=== PATIENT | male | born 1955 | race Caucasian/White ===

== ENCOUNTER → 2017-02-21 | Outpatient (CLI) | payer BC, OTHER ==
[~2017-02-21] VITALS: Ht 172.7 cm; Wt 84.1 kg
[~2017-02-21] MED LIST: AMARYL2 MG PO; ARAVA20 MG PO; ASPIR 8181 MG PO; ATORVASTATIN CA80 MG PO; HYDROCODONE-APA1 TA1 PO; LANTUS SOL100 UNIT/1 SQ; LISINOPRIL10 MG PO; LOPRESSOR25 PO; NITROGLYCERIN0.4 MG SUBLING; PLAVIX 75 MG TA75 M1 PO; PREDNISONE 10 M10 MG PO; PROTONIX40 M1 PO
--- NOTE | ~2017-02-21 | HPC ---
[facility] [address] [place] [address] PAIN MANAGEMENT CONSULTATION Name: DAWIT MATHEWS Room #: REG VICENTETere Browne#: [id number] Admission: 02/21/17 Attend Phys: Diomedes Sarmiento DO Discharge: Date of : 57 Report #: [id number] THIS REPORT FOR: //name// CC: Renaldo Sarmiento DATE OF SERVICE: 02/22/2017 The patient is a 60-year-old gentleman seen in consultation at the request of Dr. Garza. The patient notes he has pain in low back, left posterior aspect of the leg to the foot. Notes pain has been chronic since 2014, seems to have gotten worse beginning of this year without antecedent trauma and overuse. The patient notes pain is sharp, constant, radiating rates it to 4 out of 5 on a 0-10 visual analog scale with walking relatively comfortable when sitting. Lifting exacerbates pain as well. Again, pain is in the posterolateral aspect of the left leg and foot moving toward the toes. The patient has tried prednisone with transient relief, currently using some hydrocodone for pain. Incidentally notes he has had significant trauma to the left hip requiring ORIF of the hip and pelvis in 1989. REVIEW OF SYSTEMS: Complete review of systems attached to chart, was gone over with the patient, generally healthy other than the prior trauma is noted. History of insulin dependent diabetes, relatively stable. He has had coronary artery disease in the past has nitroglycerin, which he takes p.r.n. (has taken it quite rarely). Does use glimepiride as well as insulin. PHYSICAL EXAMINATION: Shows 172 cm, 84 kilogram gentleman, BMI is 20.2 kilograms per meter squared. Blood pressure is elevated today 160/107, pulse 85 and respirations 18. HEENT: Cranial nerves 2-12 are grossly intact. Pupils equal, reactive to light and accommodation. Extraocular muscles are intact. NEUROLOGIC: Alert and oriented to person, place and time, judged to be a reasonable historian. Thyroid is moderately enlarged, no nodules are noted. Upper extremity strength is generally preserved. HEART: Regular rhythmical without murmur. LUNGS: Clear to auscultation. ABDOMEN: Somewhat endomorphic build. EXTREMITIES: Rises from chair using armrest. Markedly antalgic gait. Lumbar flexion is good to 90 degrees, but significantly exacerbates low back and left leg pain. Left dorsiflexion strength is dramatically limited at 0-1/5. He notes this has been problematic since the fairly extensive surgery in that left hip in 1989. Left lower extremity extension is about 2-3/5, hip flexion is [address] [address] PAIN MANAGEMENT CONSULTATION Name: DAWIT MATHEWS Room #: REG CLTere Bhandari.#: [id number] Admission: 02/21/17 Attend Phys: Diomedes Sarmiento DO Discharge: Date of : 57 Report #: [id number] 2-3/5 right leg is much stronger 4-5/5 for all muscle groups tested. Grossly positive straight leg raise on the left. DIAGNOSTIC STUDIES: There are no recent diagnostic studies available for evaluation at this time. ASSESSMENT: Symptomatic lumbar radiculopathy in a patient with prior history of significant trauma to the left hip open reduction internal fixation in 1989, insulin-dependent diabetes. RECOMMENDATIONS: Discussion with the patient today about therapeutic options. We ultimately like to proceed with epidural injection under fluoroscopy today, we will use 60 mg triamcinolone in consideration of the diabetes. Recommend discontinue oral prednisone. Follow up in 30 days for reevaluation as per [facility] insurance regulations. ASSESSMENT: Symptomatic lumbar radiculopathy. PROCEDURE NOTE: Lumbar epidural injection under fluoroscopy. After both written and informed consent to include risk of spinal cord damage, increased pain, weakness and dural puncture, the patient was taken to the fluoroscopy suite, placed in the prone position. After sterile prep and drape, a skin wheal with lidocaine was raised. A 22-gauge epidural Tuohy needle was inserted in the midline at L5-S1 with good loss to resistance. Negative aspiration for cerebrospinal fluid or blood was noted. Then 1 mL of Omnipaque under biplanar fluoroscopy showed good spread within the epidural space. This was followed with 60 mg of triamcinolone plus 1 mL of 1.5% preservative-free Xylocaine, 0.5 mL Xylocaine was then injected to flush the needle; it was removed. The patient was monitored for an appropriate period of time and discharged in good and stable condition. <ELECTRONICALLY SIGNED> By: Diomedes Sarmiento DO 02/24/17 1130 1049 [id number] Diomedes Sarmiento DO /nt
[2017-02-21 14:07] VITALS: BP 160/107
== END | disposition home or self-care (01) ==
LOC: PAIN 07:28
DX: M54.16 Radiculopathy, lumbar region (principal)

== ENCOUNTER → 2017-03-27 | Outpatient (CLI) | payer BC, OTHER ==
[~2017-03-27] VITALS: Ht 172.7 cm; Wt 82.6 kg
--- NOTE | ~2017-03-27 | HPC ---
[facility] [address] [place] [address] PAIN MANAGEMENT CONSULTATION Name: DAWIT MATHEWS Room #: REG CL Elisabet.#: [id number] Admission: 03/27/17 Attend Phys: Diomedes Sarmiento DO Discharge: Date of : 57 Report #: [id number] THIS REPORT FOR: //name// CC: Renaldo Sarmiento DATE OF SERVICE: 03/27/2017 The patient is a pleasant 62-year-old gentleman last seen in the pain clinic 02/21/2017. We proceeded with an epidural injection at that time. The patient had acute lumbar radiculopathy with chronic left hip pain status post trauma requiring extensive ORIF of the hip and pelvis. The patient notes the injection afforded very good relief greater than 80%, though when he was bending to left, a fairly heavy 100-pound work related object, he developed recurrence of pain in the low back, left hip and leg. PHYSICAL EXAMINATION: Today again shows pleasant 62-year-old gentleman. Subjective pain score of 4 at present up to an 8 with movement in the low back, left hip, lateral leg. BMI is 27.7 kilograms per meter squared. Blood pressure is modestly elevated at 157/90, pulse 74, respirations are 20. Left leg does show chronic weakness about 3/5 to all muscle groups tested. Right leg is a little bit stronger. Again, this has been weaker since the 1989 trauma; however, he does have a grossly positive straight leg raise on the left, which reproduces L5 radicular pain pattern. ASSESSMENT: Symptomatic lumbar radiculopathy in an insulin-dependent gentleman. RECOMMENDATION: Lumbar epidural injection under fluoroscopy today at L5-S1. We will use 60 mg steroid in consideration of his diabetes. Follow up in 30 days for reevaluation. Cancel if doing well. PROCEDURE NOTE: Lumbar epidural injection under fluoroscopy. PROCEDURE NOTE: After both written and informed consent to include risk of spinal cord damage, increased pain, weakness and dural puncture, the patient was taken to the fluoroscopy suite, placed in the prone position. After sterile prep and drape, a skin wheal with lidocaine was raised. A 22-gauge epidural Tuohy needle was inserted in the midline at L5-S1 with good loss to resistance. Negative aspiration for cerebrospinal fluid or blood was noted. Then 1 mL of Omnipaque under biplanar fluoroscopy showed good spread within the epidural space. This was followed with 60 mg of triamcinolone plus 1 mL of 1.5% preservative-free Xylocaine, 0.5 mL Xylocaine [place] [address] PAIN MANAGEMENT CONSULTATION Name: DAWIT MATHEWS Room #: REG CL Pavan#: [id number] Admission: 03/27/17 Attend Phys: Diomedes Sarmiento DO Discharge: Date of : 57 Report #: [id number] needle; it was removed. The patient was monitored for an appropriate period of time and discharged in good and stable condition. <ELECTRONICALLY SIGNED> By: Diomedes Sarmiento DO 03/28/17 0925 1220 2019 Diomedes Sarmiento DO /nt
[2017-03-27 10:30] VITALS: BP 157/90
== END | disposition home or self-care (01) ==
LOC: PAIN 03-07 08:48
DX: M54.16 Radiculopathy, lumbar region (principal); M25.552 Pain in left hip; G89.29 Other chronic pain; E11.9 Type 2 diabetes mellitus without complications; Z79.4 Long term (current) use of insulin; Z98.890 Other specified postprocedural states

== ENCOUNTER → 2017-07-28 | Outpatient (CLI) | payer BC, OTHER ==
[2017-07-24 08:03] VITALS: BP 120/68
[~2017-07-28] VITALS: Ht 172.7 cm; Wt 81.6 kg
[~2017-07-28] MED LIST changes: +ELIQUIS5 MG PO
--- NOTE | ~2017-07-28 | HPC ---
[facility] [place] [address] PAIN MANAGEMENT CONSULTATION Name: DAWIT MATHEWS Room #: REG CLeTre Browne#: [id number] Admission: 07/28/17 Attend Phys: Diomedes Sarmiento DO Discharge: Date of : 57 Report #: [id number] THIS REPORT FOR: //name// CC: Renaldo Sarmiento The patient is a 62-year-old gentleman, prior seen back in March for lumbar radicular symptoms. He was given an L5-S1 epidural injection at that time with significant improvement of baseline pain. He actually presented to the pain clinic last for injection. Unfortunately, he was on Eliquis at that time. I did do a quick exam. Symptoms are compatible with left L5 radicular pain pattern. The patient complained about having to pay 2 co-pays because he would be seen on Friday and had to be seen again today. I simply allowed the patient to leave the clinic without dictating and without charging him for an office visit. He does return to the pain clinic today again. Symptoms are continuing with left L5 radicular pain pattern. Pain is in the low back, exacerbated with standing, walking and bending. He has some new pain in the right low back. States he was chasing his dog, crosses neighbor's yard while he was driving his tractor, apparently ran over some rough terrain and injured his right low back. He also notes some chronic pain in his left upper arm. He had not mentioned this before. He states it has been present for several months. Notes pain seems to be exacerbated when he is driving his bulldozer or driving his vehicle, he tends to hold the steering with his left arm. Bulldozer requires "joystick" manipulation with both left and right hands. PHYSICAL EXAMINATION: Shows a 62-year-old gentleman, BMI is 27.4 kg/m2. Cervical range of motion is full. Lhermitte's is negative. Does have pain in the left upper arm. Strength is fairly symmetric. Has a positive radial Tinel. Deep tendon reflexes are preserved for the upper extremity. Seems to have left upper arm pain, which sounds neurogenic, but again with negative limits and symmetric. Deep tendon reflexes are generally symmetric strength. I am somewhat stymied to determine the cause, if symptoms continue, we may need an EMG of the upper extremity. Otherwise, rises from chair using armrest. Diffuse tenderness across the low back, pain in left low back, buttock, and leg, posterior aspect. Positive straight leg raise on the left. Some diffuse tenderness in the right low back. No discrete trigger points noted. ASSESSMENT: 1. Symptomatic lumbar radiculopathy in a gentleman who had been off Eliquis for 3 days with a history of bbx-cdeqtty-zpzetgici diabetes. Recommendation: Epidural injection under fluoroscopy today at L5-S1, we will use 60 mg of triamcinolone and resume Eliquis tonight. 2. Component of carpal tunnel syndrome on the left (radial), left upper arm pain and component of cervical radiculopathy (?). Recommendation: Conservative therapy for another 3 weeks. If symptoms continue, we will request EMG of the [address] [address] PAIN MANAGEMENT CONSULTATION Name: DAWIT MATHEWS Room #: REG UVALDO Browne#: [id number] Admission: 07/28/17 Attend Phys: Diomedes Sarmiento DO Discharge: Date of : 57 Report #: [id number] left upper extremity. PROCEDURE: Lumbar epidural injection under fluoroscopy. PROCEDURE NOTE: After both written and informed consent to include risk of spinal cord damage, increased pain, weakness and dural puncture, the patient was taken to the fluoroscopy suite, placed in the prone position. After sterile prep and drape, a skin wheal with lidocaine was raised. A 22-gauge epidural Tuohy needle was inserted in the midline at level of L5-S1 with good loss to resistance. Negative aspiration for cerebrospinal fluid or blood was noted. Then 1 mL of Omnipaque under biplanar fluoroscopy showed good spread within the epidural space. This was followed with 60 mg of triamcinolone plus 1 mL of 1.5% preservative-free Xylocaine, 0.5 mL Xylocaine was then injected to flush the needle; it was removed. The patient was monitored for an appropriate period of time and discharged in good and stable condition. By: 1230 193 Diomedes Sarmiento DO /nt
[2017-07-28 10:09] VITALS: BP 141/85
== END | disposition home or self-care (01) ==
LOC: PAIN 07-24 06:49
DX: M54.16 Radiculopathy, lumbar region (principal); E11.9 Type 2 diabetes mellitus without complications

== ENCOUNTER → 2017-09-04 | Outpatient (CLI) | payer BC, OTHER ==
[~2017-09-04] VITALS: Ht 172.7 cm; Wt 81.2 kg
[~2017-09-04] MED LIST changes: +CARVEDILOL6.25 MG; +PRAVACHOL40 MG PO; +ZETIA10 MG PO
--- NOTE | ~2017-09-04 | HPC ---
[facility] [address] [place] [address] PAIN MANAGEMENT CONSULTATION Name: DAWIT MATHEWS Room #: REG Tere Browne#: [id number] Admission: 09/04/17 Attend Phys: Diomedes Sarmiento DO Discharge: Date of : 57 Report #: [id number] THIS REPORT FOR: //name// CC: Renaldo Sarmiento The patient is a 62-year-old gentleman being treated for symptomatic lumbar radiculopathy. He has had good relief with occasional epidural injections, had an injection in January and March. Good relief in third injection 07/28/2017. He had 60% relief with the injection for greater than 6 weeks, the pain has begun to recur, returns to pain clinic today noting pain is in the left low back and leg, pain is exacerbated with standing, walking and bending, rates it 6/10. He saw chiropractor with nominal efficacy. PHYSICAL EXAMINATION: Shows a 62-year-old gentleman, BMI is 27.2 kg/m2. Vital signs generally stable as noted in the EMR. He does have left leg weakness, which is pretty pronounced, but again has been weak since 1989 when he had a dislocation of the hip. He got a little bit better; however, and then about 2 years ago, pain got worse secondary to more radicular type component. Acute left lumbar radicular pain at this point. We reviewed his old MRI somewhat dated from 2014, noting diffuse lumbar spondylosis with subluxation of L5 on S1 with bilateral spondylosis. No significant malalignment was noted with flexion or extension. With ongoing lumbar radicular symptoms; however, and positive neural tensioning symptoms on the left, we have elected to: 1. Repeat epidural injection under fluoroscopy today. 2. Order an MRI of the lumbar spine 3. Follow up in 2 weeks for reevaluate and review MRI findings. ASSESSMENT: Symptomatic lumbar radiculopathy secondary to spinal stenosis. PROCEDURE: Lumbar epidural injection under fluoroscopy. PROCEDURE NOTE: After both written and informed consent to include risk of spinal cord damage, increased pain, weakness and dural puncture, the patient was taken to the fluoroscopy suite, placed in the prone position. After sterile prep and drape, a skin wheal with lidocaine was raised. A 22-gauge epidural Tuohy needle was inserted in the midline at L5-S1 with good loss to resistance. Negative aspiration for cerebrospinal fluid or blood was noted. Then 1 mL of Omnipaque under biplanar fluoroscopy showed good spread within the epidural space. This was followed with 80 mg of triamcinolone plus 1 mL of 1.5% preservative-free Xylocaine, 0.5 mL Xylocaine was then injected to flush the [address] [address] PAIN MANAGEMENT CONSULTATION Name: DAWIT MATHEWS Room #: REG CLTere Browne#: [id number] Admission: 09/04/17 Attend Phys: Diomedes Sarmiento DO Discharge: Date of : 57 Report #: [id number] needle; it was removed. The patient was monitored for an appropriate period of time and discharged in good and stable condition. <ELECTRONICALLY SIGNED> By: Diomedes Sarmiento DO 09/05/17 0657 1614 1936 Diomedes Sarmiento DO /nt
[2017-09-04 14:12] VITALS: BP 127/90
== END | disposition home or self-care (01) ==
LOC: PAIN 08-29 07:01
DX: M54.16 Radiculopathy, lumbar region (principal); G89.29 Other chronic pain; Z79.899 Other long term (current) drug therapy; Z79.4 Long term (current) use of insulin; Z79.82 Long term (current) use of aspirin